=== PATIENT | female | born 1985 | race Two or more races ===

== ENCOUNTER → 2020-02-08 | Outpatient (CLI) | payer OTHER | END | disposition home or self-care (01) | LOC: PRENATAL 09:54 | PROVIDERS: ATTEND Obstetrics & Gynecology Maternal & Fetal Medicine | DX: O36.5931 Maternal care for other known or suspected poor fetal growth, third trimester, fetus 1 (principal); O35.3XX1 Maternal care for (suspected) damage to fetus from viral disease in mother, fetus 1; O35.0XX1 Maternal care for (suspected) central nervous system malformation in fetus, fetus 1; O98.513 Other viral diseases complicating pregnancy, third trimester; Z36.89 Encounter for other specified antenatal screening; Z3A.33 33 weeks gestation of pregnancy ==

== ENCOUNTER 2020-02-27 16:16 | Inpatient (IN) | payer OTHER ==
[~2020-02-27] VITALS: Ht 154.9 cm; Wt 72.6 kg
[2020-02-27] MEDS ORDERED: PRENATAL TABLE1 EAC1 PO (16:30)
== END 2020-02-29 17:43 | disposition home or self-care (01) | DRG 807 ==
LOC: LDR 16:16 → SURG-SUITE 16:16
PROVIDERS: ADMIT Obstetrics & Gynecology; ATTEND Obstetrics & Gynecology
PROC: 10E0XZZ Delivery of Products of Conception, External Approach (ICD-10-PCS; principal; 2020-02-27)
PROC: 4A1HXFZ Monitoring of Products of Conception, Cardiac Rhythm, External Approach (ICD-10-PCS; 2020-02-27)
PROC: 3E033VJ Introduction of Other Hormone into Peripheral Vein, Percutaneous Approach (ICD-10-PCS; 2020-02-27)
DX: O70.0 First degree perineal laceration during delivery (principal); Z37.0 Single live birth; Q96.8 Other variants of Turner's syndrome; Z3A.39 39 weeks gestation of pregnancy